=== PATIENT | male | born 1940 | race Caucasian/White ===

== ENCOUNTER 2016-06-01 09:20 | Emergency (ER) | payer OTHER ==
[~2016-06-01] VITALS: Ht 171.4 cm; Wt 67.8 kg
[~2016-06-01 09:20] MED LIST: ATOR80TA41 PO; CHOL1CAP6 PO; COZA100T PO; DIAZ5TAB PO; HYDR12.56 PO; METO25 PO; MULT-65 PO
[2016-06-01 09:32] VITALS: BP 159/97; PULSE 98; RESP 16; TEMP 98; O2SAT 97
[2016-06-01] MEDS ORDERED: XARE15TA PO (09:38)
[2016-06-01] MEDS ORDERED: LOSA100T PO (09:38)
[2016-06-01] MEDS ORDERED: LIPI80TA PO (09:38)
[2016-06-01] MEDS ORDERED: DILT-60 PO (09:38)
[2016-06-01] MEDS ORDERED: METO50TA PO (09:38)
[2016-06-01 09:53] VITALS: BP 159/97; PULSE 113; RESP 16; O2SAT 98
[2016-06-01 09:59] VITALS: RESP 16; O2SAT 100
[2016-06-01] MEDS ORDERED: SODIUM CHLORIDE 0.9% FLUSH 10 ML FLUSH IVF PRN (10:00)
[2016-06-01] MEDS ORDERED: DILTIAZEM HCL 25 MG/5 ML VIAL IV PUSH ONE (10:00)
[2016-06-01] MEDS ORDERED: SODIUM CHLOR 0.9% 1000 ML INJ 1,000 ML IV ONE ×2 (10:00→10:45)
--- NOTE | 2016-06-01 10:08 | PD ---
HPI Chief Complaint: Cardiac Complaint Time Seen by Provider: 09:48 Travel History International Travel<30 days: No Contact w/Intl Traveler<30days: No Traveled to known affect area: No History of Present Illness HPI Patient is a 75-year-old male who presents to emergency room with complaints of fast heart rate. Patient reports that he has history of A. fib, a flutter, reports that he has had A. fib ablation 3 years ago which failed. Patient reports that he does follow-up with a marriage and family social worker jazzmine Mckeon, reports that he has been having problems with A. fib for the past few years. Patient reports that yesterday around 7 AM this morning, he felt his heart race. Patient reports that his symptoms have been intermittent in nature, reports that they've lasted a few hours and stop for for a few seconds and then continue again. Reports that he became concerned as his symptoms have felt persistent since yesterday and "it really bothers me." Patient reports that he is currently on diltiazem CD 24 hours 120 mg as well as metoprolol 50 mg twice a day for his treatment of his atrial fibrillation. He does endorse that he had a negative stress test and echo 6 months ago. He did follow-up with Dr. Mckeon the office 5 months ago and reports that everything was fine. PFSH Past Medical History Arthritis: No Asthma: No Atrial Fibrillation: Yes Autoimmune Disease: No Blood Disorders: No Anxiety: Yes Depression: No Heart Rhythm Problems: Yes (R CAROTID BRUIT) Cancer: No Cardiovascular Problems: Yes High Cholesterol: Yes Chemotherapy: No Chest Pain: No Congestive Heart Failure: No COPD: No Cerebrovascular Accident: No Diabetes: No Diminished Hearing: No Endocrine: No GERD: No Genitourinary: No Headaches: No Hepatitis: No Hiatal Hernia: No Hypertension: Yes Immune Disorder: No Musculoskeletal: No Neurologic: No Psychiatric: No Respiratory: No Myocardial Infarction: No Radiation Therapy: No Seizures: No Sickle Cell Disease: No Sleep Apnea: No Thyroid Disease: No Ulcer: No Tetanus Vaccination: < 5 Years Influenza Vaccination: Yes Past Surgical History Abdominal Surgery: No AICD: No Cardiac Surgery: Yes (CARDIAC ABLATION) Ear Surgery: No Endocrine Surgery: No Eye Surgery: Yes (STYE R EYE- ) Genitourinary Surgery: No Gynecologic Surgery: No Joint Replacement: No Oral Surgery: No Pacemaker: No Thoracic Surgery: No Other Surgery: Yes (CYST REMOVED FROM BACK) Social History Alcohol Use: Yes ("2 glasses of wine every day") Tobacco Use: No (quit 1972) Substance Use: No Allergies-Medications (Allergen,Severity, Reaction): Coded Allergies: Pradaxa (Unverified Allergy, Severe, Diarrhea, 06/01/16) Sulfa (Verified Allergy, Severe, "as child,don't know what reaction was", 06/01/16) Reported Meds & Prescriptions Reported Meds & Active Scripts Active Reported Lipitor (Atorvastatin Calcium) 80 Mg Tab 80 Mg PO HS Losartan (Losartan Potassium) 100 Mg Tab 100 Mg PO DAILY Xarelto (Rivaroxaban) 15 Mg Tab 15 Mg PO DAILY@1600 Metoprolol Tartrate 50 Mg Tab 50 Mg PO BID Diltiazem CD 24 HR 120 Mg Caper 120 Mg PO DAILY Review of Systems General / Constitutional: No: Fever Eyes: No: Visual changes HENT: No: Headaches Cardiovascular: Positive: Palpitations, Irregular Rhythm, Tachycardia, No: Chest Pain or Discomfort Respiratory: No: Shortness of Breath Gastrointestinal: No: Abdominal Pain Genitourinary: No: Dysuria Musculoskeletal: No: Pain Skin: No Rash Neurologic: No: Weakness Psychiatric: No: Depression Endocrine: No: Polydipsia Hematologic/Lymphatic: No: Easy Bruising Physical Exam Narrative GENERAL: No acute distress SKIN: Focused skin assessment warm/dry. HEAD: Atraumatic. Normocephalic. EYES: . No injection or drainage. ENT: No nasal bleeding or discharge. Mucous membranes pink and moist. NECK: Trachea midline. No JVD. CARDIOVASCULAR: Irregular rate and rhythm. No murmur appreciated. RESPIRATORY: No accessory muscle use. Clear to auscultation. Breath sounds equal bilaterally. GASTROINTESTINAL: Abdomen soft, non-tender, nondistended. Hepatic and splenic margins not palpable. MUSCULOSKELETAL: No obvious deformities. No clubbing. No cyanosis. No edema. NEUROLOGICAL: Awake and alert. Normal speech. PSYCHIATRIC: Appropriate mood and affect; insight and judgment normal. Data Data Last Documented VS Vital Signs Date Time Temp Pulse Resp B/P Pulse Ox O2 Delivery O2 Flow Rate FiO2 06/01/16 11:00 74 16 144/78 98 Room Air 06/01/16 09:32 98.0 Orders B-Type Natriuretic Peptide (06/01/16 09:55) Ckmb (Isoenzyme) Profile (06/01/16 09:55) Complete Blood Count With Diff (06/01/16 09:55) Comprehensive Metabolic Panel (06/01/16 09:55) Magnesium (Mg) (06/01/16 09:55) Prothrombin Time / Inr (Pt) (06/01/16 09:55) Act Partial Throm Time (Ptt) (06/01/16 09:55) Troponin I (06/01/16 09:55) Chest, Single Ap (06/01/16 09:55) Ecg Monitoring (06/01/16 09:55) Iv Access Insert/Monitor (06/01/16 09:55) Oximetry (06/01/16 09:55) Sodium Chloride 0.9% Flush (Ns Flush) (06/01/16 10:00) Sodium Chlor 0.9% 1000 Ml Inj (Ns 1000 M (06/01/16 10:00) Diltiazem Inj (Cardizem Inj) (06/01/16 10:00) Electrocardiogram (06/01/16 ) Sodium Chlor 0.9% 1000 Ml Inj (Ns 1000 M (06/01/16 10:45) Labs Laboratory Tests Test 06/01/16 10:00 White Blood Count 9.2 TH/MM3 Red Blood Count 4.21 MIL/MM3 Hemoglobin 13.9 GM/DL Hematocrit 40.8 % Mean Corpuscular Volume 96.9 FL Mean Corpuscular Hemoglobin 32.9 PG Mean Corpuscular Hemoglobin 34.0 % Concent Red Cell Distribution Width 13.1 % Platelet Count 277 TH/MM3 Mean Platelet Volume 7.8 FL Neutrophils (%) (Auto) 68.0 % Lymphocytes (%) (Auto) 16.4 % Monocytes (%) (Auto) 8.1 % Eosinophils (%) (Auto) 6.9 % Basophils (%) (Auto) 0.6 % Neutrophils # (Auto) 6.3 TH/MM3 Lymphocytes # (Auto) 1.5 TH/MM3 Monocytes # (Auto) 0.7 TH/MM3 Eosinophils # (Auto) 0.6 TH/MM3 Basophils # (Auto) 0.1 TH/MM3 CBC Comment DIFF FINAL Differential Comment Prothrombin Time 13.4 SEC Prothromb Time International 1.2 RATIO Ratio Activated Partial 32.8 SEC Thromboplast Time Sodium Level 141 MEQ/L Potassium Level 4.6 MEQ/L Chloride Level 104 MEQ/L Carbon Dioxide Level 28.7 MEQ/L Anion Gap 8 MEQ/L Blood Urea Nitrogen 23 MG/DL Creatinine 1.80 MG/DL Estimat Glomerular Filtration 37 ML/MIN Rate Random Glucose 189 MG/DL Calcium Level 8.7 MG/DL Magnesium Level 2.2 MG/DL Total Bilirubin 0.5 MG/DL Aspartate Amino Transf 32 U/L (AST/SGOT) Alanine Aminotransferase 48 U/L (ALT/SGPT) Alkaline Phosphatase 82 U/L Total Creatine Kinase 95 U/L Troponin I LESS THAN 0.02 NG/ML B-Type Natriuretic Peptide 243 PG/ML Total Protein 7.7 GM/DL Albumin 4.0 GM/DL MDM Medical Decision Making Medical Screen Exam Complete: Yes Emergency Medical Condition: Yes Interpretation(s) EKG at 09: A flutter at 119 bpm, QT/QTC 302/405 EKG at 1031: afib at 50bpm, qt/qtc: 412/395, no acute changes Vital Signs Date Time Temp Pulse Resp B/P Pulse Ox O2 Delivery O2 Flow Rate FiO2 06/01/16 09:59 16 100 Room Air 06/01/16 09:53 113 16 99 Room Air 06/01/16 09:53 113 16 159/97 98 Room Air 06/01/16 09:32 98.0 98 16 159/97 97 Differential Diagnosis Atrial fibrillation, atrial flutter, arrhythmia, electrolyte abnormality Narrative Course 75-year-old male with history of atrial fibrillation currently taking xarelto as well as diltiazem and metoprolol for his afib. Reports that symptoms are intermittent in nature, reports that he has been having increased symptoms since yesterday morning. On EKG, patient is an a-flutter rhythm. Patient denies chest pain at this time , reports that his heart feels as if it is racing. Patient was placed on a mason helper. Labs as well as x-ray chest ordered. Patient was given a dose of Cardizem 0.25 mg/kg dose. Plan to rate control patient Patient rate controlled after 17mg of diltiazem IV. Will repeat EKG. Patient reports that he is feeling much better at this time CR 1.8 - baseline around 1.4- will give IVF Call made to Dr Mckeon Repeat ekg at 1031: afib at 50bpm Case reviewed with Dr. Mckeon, request that patient take his cardizem twice a day and follow up in office on Sunday. Plan to have patient call for an appointment for sunday Heart rate-controlled's in the 50-70's after IV Cardizem given to patient. Patient did take his morning dose of Cardizem, patient reports that he is feeling much better at this time. Plan to discharge patient to home with follow -up with Dr. Mckeon on Sunday. Signs and symptoms of when to return to the emergency room was reviewed with patient in detail. Diagnosis Primary Impression: Atrial flutter with rapid ventricular response Patient Instructions: General Instructions Additional Instructions: Please call Dr. Mckeon's office when you leave ER for follow up appointment on Sunday Please take your Diltiazem CD 24 hours 120mg TWICE A DAY INSTEAD OF ONCE A DAY Return to the emergency room as needed Disposition: 01 DISCHARGE HOME Condition: Stable Lucila Diaz DO Jun 01, 2016 10:07
[2016-06-01 10:13] LABS: AUTOMATED NEUTROPHIL # 6.3 TH/MM3 (1.8-7.7); BASOPHIL # 0.1 TH/MM3 (0-0.2); BASOPHIL % 0.6 % (0.0-2.0); EOSINOPHIL # 0.6 TH/MM3 (0-0.4); EOSINOPHIL % 6.9 % (0.0-4.0); HEMATOCRIT 40.8 % (39.0-51.0); HEMO FLAGS DIFF FINAL; LYMPH % 16.4 % (9.0-44.0); LYMPHOCYTE # 1.5 TH/MM3 (1.0-4.8); MEAN CELL VOLUME 96.9 FL (80.0-100.0); MEAN CORPUSCULAR HEMOGLOBIN 32.9 PG (27.0-34.0); MONO % 8.1 % (0.0-8.0); PLATELET COUNT 277 TH/MM3 (150-450); RED BLOOD COUNT 4.21 MIL/MM3 (4.50-5.90); RED CELL DISTRIBUTION WIDTH 13.1 % (11.6-17.2); WHITE BLOOD COUNT 9.2 TH/MM3 (4.0-11.0)
--- NOTE | 2016-06-01 10:14 | RADHPO ---
EXAM DATE/TIME: 06/01/2016 10:03 [facility] COMPARISON: CHEST SINGLE AP, October 22, 2014, 19:24. INDICATIONS : Chest discomfort; atrial flutter. MEDICAL HISTORY : Hypertension. Right carotid bruit. SURGICAL HISTORY : Ablation. ENCOUNTER: Initial ACUITY: 1 day PAIN SCORE: 1/10 LOCATION: Bilateral chest FINDINGS: The heart and mediastinal structures are normal. The pulmonary vascular pattern is also normal. The lungs are clear. CONCLUSION: No acute cardiopulmonary disease. Bhavin Gomez MD on June 01, 2016 at 10:11 Board Certified Radiologist. This report was verified electronically.
[2016-06-01 10:21] LABS: CHLORIDE 104 MEQ/L (98-107); POTASSIUM 4.6 MEQ/L (3.5-5.1); SODIUM (NA) 141 MEQ/L (136-145)
[2016-06-01 10:25] LABS: ANION GAP 8 MEQ/L (5-15); APTT (PATIENT) 32.8 SEC (24.3-30.1); BICARBONATE 28.7 MEQ/L (21.0-32.0); BLOOD UREA NITROGEN 23 MG/DL (7-18); INTERNATIONAL NORMALIZED RATIO 1.2 RATIO; MAGNESIUM 2.2 MG/DL (1.5-2.5); PROTHROMBIN TIME - PATIENT 13.4 SEC (9.8-11.6)
[2016-06-01 10:27] LABS: ALT (GPT) 48 U/L (12-78)
[2016-06-01 10:28] LABS: AST (GOT) 32 U/L (15-37); GLOMERULAR FILTRATION RATE 37 ML/MIN (>89)
[2016-06-01 10:29] LABS: TOTAL BILIRUBIN ADULT 0.5 MG/DL (0.2-1.0)
[2016-06-01 10:30] LABS: ALKALINE PHOSPHATASE 82 U/L (45-117)
[2016-06-01 10:32] LABS: CREATINE KINASE 95 U/L (39-308)
[2016-06-01 11:00] VITALS: BP 144/78; PULSE 74; RESP 16; O2SAT 98
--- NOTE | 2016-06-02 20:02 | EKG ---
Date Performed: 06/01/2016 Time Performed: 09:21:56 PTAGE: 75 years EKG: Atrial flutter with rapid ventricular response Possible inferior infarct - age undetermined Possible anterior infarct - age undetermined Lateral ST-T changes may be due to myocardial ischemia Compared to previous tracing, patient is no longer in Sinus rhythm Abnormal ECG PREVIOUS TRACING : 10/22/2014 19.15 DOCTOR: Jaime Mcleod Interpretating Date/Time 06/02/2016 20:02:38
--- NOTE | 2016-06-02 20:04 | EKG ---
Date Performed: 06/01/2016 Time Performed: 10:31:48 PTAGE: 75 years EKG: Atrial fibrillation with slow ventricular response Possible inferior infarct - age undeterm ined Possible anterior infarct - age undetermined Compared to previous tracing, ST-T wave abnormalite s have resolved Abnormal ECG PREVIOUS TRACING : 06/01/2016 09.21 DOCTOR: Jaime Mcleod Interpretating Date/Time 06/02/2016 20:03:22
== END 2016-06-01 12:15 | disposition home or self-care (01) ==
LOC: PHED 09:20
DX: I48.92 Unspecified atrial flutter (principal); I48.91 Unspecified atrial fibrillation; R09.89 Other specified symptoms and signs involving the circulatory and respiratory systems; E78.00 Pure hypercholesterolemia, unspecified; I10 Essential (primary) hypertension; Z87.891 Personal history of nicotine dependence
CPT/HCPCS: 71010; 80053; 82550; 83735; 83880; 84484; 85025; 85610; 85730; 93005; 96361; 96374; 99285; J7030

== ENCOUNTER 2016-07-07 10:48 | Day surgery (SDC) | payer OTHER ==
[~2016-07-07] VITALS: Ht 170.2 cm; Wt 72.0 kg
[2016-07-07] VITALS (9 sets, daily range): BP systolic 123–183; BP diastolic 65–86; PULSE 64–75; RESP 16–18; TEMP 97.4–98.4; O2SAT 94–99
[~2016-07-07 10:48] MED LIST changes: -ATOR80TA41 PO; -CHOL1CAP6 PO; -COZA100T PO; -DIAZ5TAB PO; +DILT-60 PO; -HYDR12.56 PO; +LIPI80TA PO; +LOSA100T PO; -METO25 PO; +METO50TA PO; -MULT-65 PO; +XARE15TA PO
[2016-07-07] MEDS ORDERED: ONCETAB7 (11:38)
[2016-07-07] MEDS ORDERED: VITA100064 PO (11:38)
[2016-07-07] MEDS ORDERED: LORazepam 1 MG TAB SL SCH (11:45)
[2016-07-07] MEDS ORDERED: CHLORHEXIDINE GLUCONATE 2 % 1 PACK (2 CLOTHS) TOPICAL PRN (11:45)
[2016-07-07] MEDS ORDERED: SODIUM CHLORID 0.9% 500 ML IV PRN (11:45)
[2016-07-07] MEDS ORDERED: POVIDONE IODINE 5% (ANTISEPSIS KIT) 4 APPLICATIONS EACH NARE PRN (11:45)
[2016-07-07] MEDS: SODIUM CHLORID 0.9% 500 ML INJ 500 ML IV SCH (11:45)
[2016-07-07] MEDS ORDERED: LACTATED RINGER'S 1000 ML IV PRN (11:45)
[2016-07-07] MEDS ORDERED: METOPROLOL TARTRATE 25 MG TAB PO PRN (11:45)
[2016-07-07] MEDS ORDERED: INSULIN HUMAN REGULAR 1,000 UNITS/10 ML VIAL SQ PRN (11:45)
[2016-07-07 12:16] LABS: BASOPHIL # 0.1 TH/MM3 (0-0.2); BASOPHIL % 0.5 % (0.0-2.0); EOSINOPHIL # 0.5 TH/MM3 (0-0.4); EOSINOPHIL % 4.3 % (0.0-4.0); HEMATOCRIT 40.7 % (39.0-51.0); HEMO FLAGS DIFF FINAL; LYMPH % 19.8 % (9.0-44.0); LYMPHOCYTE # 2.1 TH/MM3 (1.0-4.8); MEAN CELL VOLUME 96.1 FL (80.0-100.0); MEAN CORPUSCULAR HEMOGLOBIN 33.1 PG (27.0-34.0); MEAN CORPUSCULAR HGB CONC 34.4 % (32.0-36.0); NEUT % 65.4 % (16.0-70.0); PLATELET COUNT 283 TH/MM3 (150-450); RED BLOOD COUNT 4.24 MIL/MM3 (4.50-5.90); RED CELL DISTRIBUTION WIDTH 13.4 % (11.6-17.2); WHITE BLOOD COUNT 10.7 TH/MM3 (4.0-11.0)
[2016-07-07 12:30] LABS: APTT (PATIENT) 25.3 SEC (24.3-30.1); PROTHROMBIN TIME - PATIENT 10.7 SEC (9.8-11.6)
[2016-07-07 12:42] LABS: BICARBONATE 29.6 MEQ/L (21.0-32.0)
[2016-07-07] MEDS ORDERED: LEVOFLOXACIN 500 MG PREMIX INJ 100 ML IV ONE (13:02)
[2016-07-07] MEDS ORDERED: ISOPROTERENOL HCL 1 MG/5 ML AMP ONE (13:12)
[2016-07-07] MEDS ORDERED: PROTAMINE SULFATE 50 MG/5 ML VIAL ONE (13:12)
[2016-07-07] MEDS ORDERED: HEPARIN SODIUM - IV 10,000 UNITS/10 ML VIAL ONE (14:05)
[2016-07-07] MEDS ORDERED: LORazepam 2 MG/ML VIAL IV PRN (15:30)
[2016-07-07] MEDS ORDERED: METOCLOPRAMIDE HCL 10 MG/2 ML VIAL IV PRN (15:30)
[2016-07-07] MEDS ORDERED: DO NOT ADM ANY ANTICOAGULANT DRUGS PRN (15:30)
[2016-07-07] MEDS ORDERED: ONDANSETRON HCL 4 MG/2 ML VIAL IV PRN (15:30)
[2016-07-07] MEDS ORDERED: oxyCODONE/ACETAMINOPHEN 5 MG/325 MG TAB PO PRN ×2 (15:30)
[2016-07-07] MEDS ORDERED: SODIUM CHLOR 0.9% 250 ML INJ 250 ML IV PRN (15:30)
[2016-07-07] MEDS ORDERED: LIDOCAINE HCL 1% 50 ML VIAL INFIL PRN (15:30)
[2016-07-07] MEDS ORDERED: ATROPINE SULFATE 1 MG/ML VIAL IV PRN (15:30)
[2016-07-07] MEDS ORDERED: BACITRACIN OINT 0.9 GM PKT TOP ONE (15:30)
[2016-07-07] MEDS ORDERED: fentaNYL CITRATE 250 MCG/5 ML AMP ONE (15:38)
[2016-07-07] MEDS ORDERED: SUGAMMADEX SODIUM 200 MG/2 ML VIAL IV PUSH ONE ×2 (15:39)
--- NOTE | 2016-07-07 15:41 | PD.CARD ---
Atrial Fibrillation Ablation PROCEDURE DATE: July 07, 2016 PROCEDURES PERFORMED: 1. Electrophysiology study on Isuprel infusion 2. CS cannulation 3. 3-D mapping 4. Transseptal approach 5. Right and left heart catheterization 6. Intracardiac echo 7. Radiofrequency ablation of atrial fibrillation 8. Pulmonary vein isolation 9. Posterior wall ablation 10. Left atrial tachycardia ablation 11. Anterior wall ablation INDICATIONS FOR THE PROCEDURE Mr. Valiente is a 75-year-old male with atrial fibrillation, previous ablation 3 years ago, symptomatic, on anticoagulation, was referred for electrophysiology study and ablation. The risks, the nature and the benefits of the procedure were clearly stated to him. The risks include pneumothorax, cardiac perforation, stroke, need for open heart surgery and even . The patient understood and agreed to proceed. DESCRIPTION OF THE PROCEDURE IN DETAIL As written informed consent was obtained prior to esophageal echocardiogram, the patient was kept on the table where he was prepped and draped in the usual sterile fashion. Conscious sedation was initiated and maintained throughout the procedure by the anesthesiologist. Once sedation was verified, the right and left inguinal areas were anesthetized with 2% Xylocaine. Using modified Seldinger technique, the left femoral vein was cannulated on three occasions, three guidewires were advanced. Over the wire a 6, 7 and a 10-American Hemaquet were advanced. Then the left femoral artery was cannulated on one occasion, one guidewire was advanced. Over the wire a 4-American Hemaquet was advanced. Then the right femoral vein was cannulated on one occasion, one guidewire was advanced. Over the wire a 8-American Hemaquet was advanced. Then under fluoroscopic guidance through the 6 and 7-American Hemaquet, two 5-American Ruben curved quadripolar electrophysiology catheters were advanced and placed around the His as well as coronary sinus. Basic interval was measured. The patient was in sinus. Through the 10-American Hemaquet, a Cordis Guy AcuNav intracardiac echo catheter was advanced and placed at the right atrium. Multiple view was obtained. There was minimal pericardial effusion, pulmonary vein was seen, atrial septal was visualized. Then the 8-American Hemaquet in the right femoral vein was exchanged for Agilis transseptal sheath that was placed all the way to the superior vena cava. Through the sheath a Trish needle was advanced, then the sheath, the dilator and the needle were progressed until foci engaged. Once engaged, the needle was advanced. RF was delivered for 2 seconds. I was able to cross into the left atrium. Once the needle crossed, the dilator was advanced. Once the dilator crossed, the sheath was advanced. Once the sheath crossed, the dilator and the needle were removed. At this point I did flood the system and fluid movement was seen in the left atrium the indicates the sheath is in good position. The patient already received 10,000 units of heparin. The goal is to keep an ACT around 350 during ablation. Then through the sheath a [place] 20 pulse circumferential catheter was advanced. Using Hashdoc endocardial solution mapping system, a two-dimensional configuration of the left atrium was obtained. Points were taken at the left superior and inferior veins, right superior and inferior veins, mitral valve, and appendages. Then through the sheath a [place]. Jose TactiCath 65cm 3.5mm irrigated tipped mapping and radiofrequency ablation catheter was advanced. Esophageal probe was placed temperature monitoring during ablation. When it increased to 0.5 degrees Celsius above baseline, I moved to a different area of the atrium. First I did isolate the left superior and inferior vein. There was still signal at the left superior. It was ablated. Posterior was ablated. Then the right superior and inferior veins were isolated. The veins were very active. During ablation patient went into atrial fibrillation then atrial tachycardia. I did remap the atrium. Early activation at the anterior portion of the right superior. Patient converted during ablation into sinus rhythm. There is no significant signal in the atrium. At this point I decided to proceed with cardioversion. There was no signal into the vein, pacing from the vein showed no conduction to the atrium. Isuprel infusion was initiated at 20 mcg for over 10 minutes. No tachyarrhythmia was induced, post Isuprel no tachyarrhythmia was induced. At that point the procedure was complete. All catheters were removed, atrial septal sheath was exchanged for 9-American Hemaquet , intracardiac echo showed no pericardial effusion. There is still good flow in the pulmonary vein. The patient is going to be transferred to the recovery room. No incident report. The patient tolerated the procedure. Blood loss was minimal. FINDINGS 1. Electrocardiogram: At baseline the patient was in sinus rhythm. Post procedure electrocardiogram was unchanged. 2. Basic interval: Base cycle length was around 840. AH at 86 and HV at 48 milliseconds. 3. Tachyarrhythmia: Atrial fibrillation was mapped and ablated. Atrial tachycardia was ablated. The ablation was successful. CONCLUSION Successful electrophysiology study, mapping, radiofrequency ablation of atrial fibrillation, left atrial tachycardia, pulmonary vein isolation, posterior ablation. COMMENTS AND RECOMMENDATIONS The patient is going to be transferred to the telemetry unit. Will be observed and when stable can be discharged home. Tim Del Toro MD July 07, 2016 15:41
[2016-07-07] MEDS ORDERED: RIVAROXABAN 15 MG TAB PO SCH (16:00)
[2016-07-07] MEDS ORDERED: DIAZ5TAB PO (18:38)
[2016-07-07] MEDS ORDERED: DIAZEPAM 5 MG TAB PO PRN (19:45)
[2016-07-07] MEDS ORDERED: ATORVASTATIN 80 MG TAB PO SCH (21:00)
[2016-07-07] MEDS: METOPROLOL TARTRATE 50 MG TAB PO SCH (21:18)
[2016-07-08] VITALS (12 sets, daily range): BP systolic 144; BP diastolic 78–80; PULSE 66–74; RESP 18; TEMP 98.9–99.1; O2SAT 93–95
[2016-07-08] MEDS: SODIUM CHLORID 0.9% 500 ML INJ 500 ML IV SCH (04:25)
[2016-07-08 06:20] LABS: APTT (PATIENT) 30.3 SEC (24.3-30.1); INTERNATIONAL NORMALIZED RATIO 1.2 RATIO; PROTHROMBIN TIME - PATIENT 12.8 SEC (9.8-11.6)
--- NOTE | 2016-07-08 08:25 | PD.CARD.PN ---
Subjective Subjective Remarks Chart reviewed. The patient has mild reflux but no cardiac symptoms or bleeding. Telemetry and EKG reveals sinus rhythm. Objective Medications Reviewed Vital Signs / I&O Vital Signs Date Time Temp Pulse Resp B/P Pulse Ox O2 Delivery O2 Flow Rate FiO2 07/08/16 07:00 69 07/08/16 06:01 72 07/08/16 05:00 70 07/08/16 04:00 70 07/08/16 03:00 66 07/08/16 03:00 99.1 71 18 144/78 93 07/08/16 02:00 67 07/08/16 01:03 67 07/08/16 00:00 68 07/07/16 23:00 98.4 75 18 123/65 94 07/07/16 23:00 68 07/07/16 22:00 72 07/07/16 21:00 72 07/07/16 20:00 98.1 73 18 148/75 94 07/07/16 20:00 72 07/07/16 19:00 75 07/07/16 18:21 69 07/07/16 17:01 64 07/07/16 16:56 97.4 67 16 153/70 96 07/07/16 16:56 67 07/07/16 16:15 97.3 63 16 145/73 100 Room Air 07/07/16 16:05 64 19 143/70 100 Room Air 07/07/16 16:00 65 22 145/78 100 Nasal Cannula 2 07/07/16 15:55 63 14 135/70 100 Nasal Cannula 2 07/07/16 15:50 63 11 136/71 100 Nasal Cannula 2 07/07/16 15:45 64 16 133/64 100 Nasal Cannula 2 07/07/16 15:40 66 16 150/66 100 Nasal Cannula 2 07/07/16 15:30 97.7 69 16 129/59 100 Nasal Cannula 2 07/07/16 11:44 98.2 66 18 183/86 99 I/O 07/07/16 07/07/16 07/07/16 07/08/16 07/08/16 07/08/16 07:00 15:00 23:00 07:00 15:00 23:00 Intake Total 1040 ml 720 ml Output Total 250 ml 450 ml Balance 790 ml 270 ml Intake Oral 240 ml 720 ml IV Total 100 ml Other 700 ml Output Urine Total 225 ml 450 ml Estimated Blood Loss 25 ml Physical Exam GENERAL: Well-nourished, well-developed patient in no apparent distress. SKIN: Warm and dry. NECK: JVD normal - less than or equal to 5 cm H20. CARDIOVASCULAR: Regular rate and rhythm without murmurs, gallops, or rubs. RESPIRATORY: Normal breath sounds - equal bilaterally. No accessory muscle use. No wheezes, rales or rubs. PERIPHERY: No cyanosis, or edema. Both groins dry without hematoma. Laboratory Laboratory Tests Test 07/07/16 07/08/16 11:30 05:35 White Blood Count 10.7 TH/MM3 Red Blood Count 4.24 MIL/MM3 Hemoglobin 14.0 GM/DL Hematocrit 40.7 % Mean Corpuscular Volume 96.1 FL Mean Corpuscular Hemoglobin 33.1 PG Mean Corpuscular Hemoglobin 34.4 % Concent Red Cell Distribution Width 13.4 % Platelet Count 283 TH/MM3 Mean Platelet Volume 8.3 FL Neutrophils (%) (Auto) 65.4 % Lymphocytes (%) (Auto) 19.8 % Monocytes (%) (Auto) 10.0 % Eosinophils (%) (Auto) 4.3 % Basophils (%) (Auto) 0.5 % Neutrophils # (Auto) 7.0 TH/MM3 Lymphocytes # (Auto) 2.1 TH/MM3 Monocytes # (Auto) 1.1 TH/MM3 Eosinophils # (Auto) 0.5 TH/MM3 Basophils # (Auto) 0.1 TH/MM3 CBC Comment DIFF FINAL Differential Comment Prothrombin Time 10.7 SEC 12.8 SEC Prothromb Time International 1.0 RATIO 1.2 RATIO Ratio Activated Partial 25.3 SEC 30.3 SEC Thromboplast Time Sodium Level 139 MEQ/L Potassium Level 4.0 MEQ/L Chloride Level 101 MEQ/L Carbon Dioxide Level 29.6 MEQ/L Anion Gap 8 MEQ/L Blood Urea Nitrogen 17 MG/DL Creatinine 1.57 MG/DL Estimat Glomerular Filtration 43 ML/MIN Rate Random Glucose 79 MG/DL Calcium Level 9.1 MG/DL Blood Type A NEGATIVE Antibody Screen NEGATIVE Assessment and Plan Assessment and Plan Problems: Atrial fibrillation with ablation Hypertension Hyperlipidemia Carotid artery disease Recommendations: Continue present medical regimen including beta blockers, anticoagulation and statins. We'll discharge home with follow-up with electrophysiology which is being arranged. No heavy exertion. Groin care discussed. All questions answered. Conrado Mckeon MD July 08, 2016 08:25
[2016-07-08] MEDS: METOPROLOL TARTRATE 50 MG TAB PO SCH (08:56)
[2016-07-08] MEDS ORDERED: CHOLECALCIFEROL (VIT D3) 1000 UNIT TAB PO SCH (09:00)
[2016-07-08] MEDS ORDERED: LOSARTAN 50 MG TAB PO SCH (09:00)
--- NOTE | 2016-07-08 16:15 | EKG ---
Date Performed: 07/07/2016 Time Performed: 16:15:29 PTAGE: 75 years EKG: Sinus rhythm WITH FIRST DEGREE AV BLOCK ABNORMAL ECG Small inferior Q waves of undetermined significance Since PREVIOUS TRACING 07/07/2016, no significant change. PREVIOUS TRACIN07/07/2016 11.41 DOCTOR: Yang Sherwood Interpretating Date/Time 07/08/2016 16:14:47
--- NOTE | 2016-07-08 16:15 | EKG ---
Date Performed: 07/07/2016 Time Performed: 11:41:36 PTAGE: 75 years EKG: Small inferior Q waves of undetermined significance Otherwise within normal limits Since PREVIOUS TRACING 06/01/2016, previous rhythm was atrial fibrillation, which has converte d to Sinus rhythm , otherwise no significant change. PREVIOUS TRACIN06/01/2016 10.31 DOCTOR: Yang Sherwood Interpretating Date/Time 07/08/2016 16:14:05
--- NOTE | 2016-07-09 15:27 | EKG ---
Date Performed: 07/08/2016 Time Performed: 08:14:18 PTAGE: 75 years EKG: Sinus rhythm . Poor R wave progression - probable normal variant Borderline ECG PREVIOUS TRACING : 07/07/2016 16.15 Compared to previous tracing, small inferior Q waves remain of undetermined significance. No significant changes DOCTOR: Yang Sherwood Interpretating Date/Time 07/09/2016 15:27:08
== END 2016-07-08 10:23 | disposition home or self-care (01) ==
LOC: HDOC 10:48 → HDIC 10:49 → HCIS 16:47 → HDOC 07-08 10:23
PROVIDERS: ATTEND Internal Medicine Interventional Cardiology
DX: I48.2 Chronic atrial fibrillation (principal); I44.0 Atrioventricular block, first degree; I10 Essential (primary) hypertension; E78.5 Hyperlipidemia, unspecified; I25.10 Atherosclerotic heart disease of native coronary artery without angina pectoris
CPT/HCPCS: 80048; 85002; 85025; 85610; 85730; 86850; 86900; 86901; 93005; 93312; 93320; 93325; 93613; 93623; 93656; 93662; C1730; C1731; C1732; C1759; C1766; C2630; J1644; J1956; J2720; J3010